=== PATIENT | male | born 1960 | race Caucasian/White ===

== ENCOUNTER 2017-09-24 14:49 | Emergency (ER) | payer OTHER ==
[2017-09-24] MEDS: LIDOCAINE WITH 8.4% SOD BICARB 3 ML DISP.SYRIN. INJ (15:00)
[2017-09-24] MEDS: DIPHTH,PERTUSS(ACELL),TET TOX 0.5 ML DISP.SYRIN. VAX IM (15:29)
[2017-09-24] MEDS: ceFAZolin IM 1 GM VIAL IM (15:52)
== END 2017-09-24 16:43 | disposition home or self-care (01) ==
LOC: ER 14:49
DX: S41.112A Laceration without foreign body of left upper arm, initial encounter (principal); F17.200 Nicotine dependence, unspecified, uncomplicated; W22.8XXA Striking against or struck by other objects, initial encounter; Y93.89 Activity, other specified; Y99.0 Civilian activity done for income or pay; Y92.69 Other specified industrial and construction area as the place of occurrence of the external cause
CPT/HCPCS: 12032; 73060; 90471; 90715; 96372; 99284-25; J0690

== ENCOUNTER 2017-10-22 05:17 | Observation (INO) | payer BC, OTHER ==
[2017-10-22] MEDS: ONDANSETRON PF 4 MG/2 ML VIAL. IV ×2 (06:04→08:00)
[2017-10-22] MEDS: MORPHINE SULFATE 10 MG/ML VIAL. IV ×2 (06:05→09:00)
[2017-10-22] MEDS ORDERED: CONTRAST GIVEN. MC (06:45)
[2017-10-22 06:48] LABS: ADD MAN DIFF? NO
[2017-10-22 06:51] LABS: BILIRUBIN,URINE NEGATIVE (NEG); CLARITY,URINE CLEAR; COLOR,URINE YELLOW; GLUCOSE,URINE NEGATIVE (NEG); NITRITE,URINE NEGATIVE (NEG); PROTEIN,URINE NEGATIVE (NEG-TRACE); UROBILINOGEN,URINE 0.2 mg/dL (0.2 mg/dL)
[2017-10-22 06:57] LABS: ANION GAP 12 (6-14); BLOOD UREA NITROGEN 22 mg/dL (8-26); CALCIUM 8.9 mg/dL (8.5-10.1); CARBON DIOXIDE 24 mmol/L (21-32); CHLORIDE 104 mmol/L (98-107); CREATININE 1.3 mg/dL (0.7-1.3); GFR 57.3; GLUCOSE 131 mg/dL (70-99); POTASSIUM 3.2 mmol/L (3.5-5.1); SODIUM 140 mmol/L (136-145)
[2017-10-22 07:05] LABS: ALBUMIN 3.9 g/dL (3.4-5.0); ALK PHOS 156 U/L (46-116); ALT (SGPT) 29 U/L (16-63); AST (SGOT) 21 U/L (15-37); DIRECT BILIRUBIN 0.1 mg/dL (0.0-0.2); LIPASE 120 U/L (73-393); TOTAL BILIRUBIN 0.4 mg/dL (0.2-1.0)
[2017-10-22 07:11] LABS: BACTERIA,URINE 0 /HPF (0-FEW); RBC,URINE 0 /HPF (0-2); SQUAMOUS EPITHELIAL CELL,UR FEW /LPF
[2017-10-22] MEDS: IOHEXOL 300 MG/ML 100ML VIAL. IV (07:13)
[2017-10-22 07:32] LABS: BASO # 0.1 x10^3/uL (0.0-0.2); BASO % 0 % (0-3); EOS # 0.1 x10^3/uL (0.0-0.7); EOS % 1 % (0-3); HEMATOCRIT 44.8 % (39.0-53.0); HEMOGLOBIN 14.9 g/dL (13.0-17.5); LYMPH # 1.3 x10^3/uL (1.0-4.8); LYMPH % 9 % (24-48); MEAN CORPUSCULAR HEMOGLOBIN 30 pg (25-35); MEAN CORPUSCULAR HGB CONC 33 g/dL (31-37); MEAN CORPUSCULAR VOLUME 92 fL (79-100); MONO # 0.8 x10^3/uL (0.0-1.1); MONO % 5 % (0-9); NEUT # 12.2 x10^3uL (1.8-7.7); NEUT % 85 % (31-73); PLATELET COUNT 209 x10^3/uL (140-400); RED CELL DISTRIBUTION WIDTH 14.4 % (11.5-14.5); WHITE BLOOD COUNT 14.5 x10^3/uL (4.0-11.0)
[2017-10-22] MEDS: MORPHINE SULFATE 4 MG/ML DISP.SYRIN. IV (07:57)
[2017-10-22] MEDS ORDERED: MORPHINE SULFATE 4 MG/ML DISP.SYRIN. IV (08:30)
[2017-10-22] MEDS ORDERED: ONDANSETRON PF 4 MG/2 ML VIAL. IV (08:30)
[2017-10-22] MEDS: KETOROLAC 30 MG/ML INJ. IV (08:32)
[2017-10-22] MEDS: IV RINGERS,LACTATED 1000ML 1,000 ML IV (08:36)
[2017-10-22] MEDS ORDERED: IOHEXOL 300 MG/ML 100ML VIAL. (11:21)
[2017-10-22] MEDS ORDERED: LIDOCAINE 2% JELLY 6ML IN APPLICATOR. (11:22)
[2017-10-22] MEDS ORDERED: fentaNYL PF VIAL 100 MCG/2 ML VIAL (11:27)
[2017-10-22] MEDS ORDERED: SEVOFLURANE 31 TO 60 MINUTES. IH ×2 (11:28)
[2017-10-22] MEDS ORDERED: DEXAMETHASONE SOD PHOS 20 MG/5 ML VIAL. (11:28)
[2017-10-22] MEDS ORDERED: PROPOFOL 20 ML IV (11:28)
[2017-10-22] MEDS ORDERED: ONDANSETRON PF 4 MG/2 ML VIAL. (11:29)
[2017-10-22] MEDS ORDERED: KETOROLAC 30 MG/ML INJ FOR OR. INJ (11:29)
[2017-10-22] MEDS ORDERED: FAMOTIDINE 20 MG/2 ML VIAL (12:25)
[2017-10-22] MEDS ORDERED: SEVOFLURANE 16 TO 30 MINUTES. IH (12:45)
[2017-10-22] MEDS: POTASSIUM CHLORIDE 20 MEQ TABLET.ER. PO (17:16)
== END 2017-10-22 18:35 | disposition home or self-care (01) ==
LOC: ER 05:17 → ED HOLD 08:00 → 4 NORTH 14:45
DX: N20.1 Calculus of ureter (principal); K57.30 Diverticulosis of large intestine without perforation or abscess without bleeding; F17.210 Nicotine dependence, cigarettes, uncomplicated; N23 Unspecified renal colic
CPT/HCPCS: 36415; 74018; 74177; 74420; 80048; 80076; 81001; 83690; 85025; 96361; 96365; 96375; 96376; 99285-25; A7015; C1769; C2617; G0378; G0379; J0690; J1100; J1885; J2270; J2405; J2704; J3010; J7120; Q9967; S0028